=== PATIENT | female | born 1970 | race Caucasian/White ===

== ENCOUNTER 2018-04-19 20:23 | Emergency (ER) | payer MEDICAID ==
[2018-04-19] MEDS ORDERED: LIDOCAINE 1% MPF 30 ML VIAL ONE (21:47)
--- NOTE | 2018-04-19 22:05 | EDPHYS ---
Physician Documentation [facility] Name: Dorene Esquivel Age: 47 yrs Sex: Female : 1970 Arrival Date: 04/19/2018 Time: 20:30 Bed 12 Private MD: ED Physician Ira Marx HPI: 04/19 21:22 This 47 yrs old Female presents to ER via Ambulatory with complaints of ma2 Finger Injury. 21:22 Mechanism of injury:. Onset: The symptoms/episode began/occurred suddenly, 12 hour(s) ma2 ago. The patient has not experienced similar symptoms in the past. tripped and fell on right hand had laceration from a nail on the ground . 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 - Social history:: Smoking status: Patient uses tobacco products, smokes one pack cigarettes per day. Patient/guardian denies using alcohol, street drugs, The patient lives with family. - Ebola Screening: : Patient denies travel to an Ebola-affected area in the 21 days before illness onset. - Family history:: not pertinent. - Hospitalizations: : No recent hospitalization is reported. ROS: 21:22 Constitutional: Negative for fever, chills, and weight loss, Cardiovascular: Negative ma2 for chest pain, palpitations, and edema, Respiratory: Negative for shortness of breath, cough, wheezing, and pleuritic chest pain. 21:22 Skin: Positive for laceration(s), Negative for abrasions, burn, diaphoresis, erythema. 21:22 All other systems are negative. Exam: 21:22 Constitutional: This is a well developed, well nourished patient who is awake, alert, ma2 and in no acute distress. Head/Face: Normocephalic, atraumatic. Neck: Trachea midline, no thyromegaly or masses palpated, and no cervical lymphadenopathy. Supple, full range of motion without nuchal rigidity, or vertebral point tenderness. No Meningismus. MS/ Extremity: Pulses equal, no cyanosis. Neurovascular intact. Full, normal range of motion. Neuro: Awake and alert, GCS 15, oriented to person, place, time, and situation. Cranial nerves II-XII grossly intact. Motor strength 5/5 in all extremities. Sensory grossly intact. Cerebellar exam normal. Normal gait. 21:22 Skin: laceration 1 cm over right palmar aspect of 5th finger . Vital Signs: 20:47 BP 128 / 89; Pulse 65; Resp 18; Temp 97.2; Pulse Ox 99% on R/A; Weight 97.52 kg (R); aj1 Height 5 ft. 6 in. (167.64 cm) (R); Pain 9/10; 22:41 BP 130 / 92; Pulse 68; Resp 20; Pulse Ox 100% ; Pain 0/10; jl3 20:47 Body Mass Index 34.70 (97.52 kg, 167.64 cm) aj1 Laceration: 21:22 Wound Repair of 1cm ( 0.4in ) subcutaneous laceration to right hand. Distal ma2 neuro/vascular/tendon intact. Anesthesia: Local anesthetic administered with 4 mls of 1% lidocaine. Wound prep: Simple cleansing, Extensive cleansing. Skin closed with 3 3-0 Prolene using simple sutures and sterile technique. Dressed with 4x4's. Patient tolerated well. MDM: 21:09 Patient medically screened. ma2 21:22 Differential diagnosis: laceration of right hand, with mild induration no tendon or ma2 nerve injury. Data reviewed: vital signs, nurses notes. Counseling: I had a detailed discussion with the patient and/or guardian regarding: the historical points, exam findings, and any diagnostic results supporting the discharge/admit diagnosis, the presence of at least one elevated blood pressure reading (>120/80) during this emergency department visit, the need for outpatient follow up, pcp in 1 day . Response to treatment: the patient's symptoms have markedly improved after treatment. 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 Lot #: [id number]. } Route: IM; Site: right deltoid; 22:37 Follow up: Response: No adverse reaction [facility] 22:23 Drug: Latimer (7.5 mg-325 mg) 1 tabs Route: PO; 3 22:37 Follow up: Response: No adverse reaction 3 Disposition: 04/19/18 22:04 Discharged to Home. Impression: Laceration with foreign body of finger without damage to nail. - Condition is Stable. - Discharge Instructions: Laceration Care, Adult. - Prescriptions for Clindamycin HCl 300 mg Oral Capsule - take 1 capsule by ORAL route every 6 hours for 10 days; 40 capsule. Tylenol- Codeine #3 300-30 mg Oral Tablet - take 2 tablet by ORAL route every 6 hours As needed; 30 tablet. - Work release form, Medication Reconciliation Form, Thank You Letter, Antibiotic Education, Prescription Opioid Use form. - Follow up: Private Physician; When: Tomorrow; Reason: Continuance of care. - Notes: remove sutures in 10 days Signatures: Kassie Odell RN RN aj1 Garcia Bashir RN RN jl3 Ira Marx MD MD ma2 Corrections: (The following items were deleted from the chart) 22:41 22:04 04/19/2018 22:04 Discharged to Home. Impression: Laceration with foreign body of jl3 finger without damage to nail. Condition is Stable. Discharge Instructions: Laceration Care, Adult. Prescriptions for Clindamycin HCl 300 mg Oral Capsule - take 1 capsule by ORAL route every 6 hours for 10 days; 40 capsule, Tylenol-Codeine #3 300-30 mg Oral Tablet - take 2 tablet by ORAL route every 6 hours As needed; 30 tablet. and Forms are Medication Reconciliation Form, Thank You Letter, Antibiotic Education, Prescription Opioid Use. Follow up: Private Physician; When: Tomorrow; Reason: Continuance of care. ma2
--- NOTE | 2018-04-19 22:05 | ER ---
Nurse's Notes [facility] Name: Dorene Esquivel Age: 47 yrs Sex: Female : 1970 Arrival Date: 04/19/2018 Time: 20:30 Bed 12 Private MD: Diagnosis: Laceration with foreign body of finger without damage to nail Presentation: 04/19 20:43 Presenting complaint: Patient states: "This morning I was walking down the back steps aj1 and slipped and fell because of the rain and I landed on my hand. My hand landed on a nail and it sliced it up" Laceration noted to right pinky finger, no bleeding noted. Patient reports that the laceration occurred at 0700 this morning. Transition of care: patient was not received from another setting of care. Onset of symptoms was April 19, 2018 at 07:00. Risk Assessment: Do you want to hurt yourself or someone else? Patient reports no desire to harm self or others. Initial Sepsis Screen: Does the patient meet any 2 criteria? No. Patient's initial sepsis screen is negative. Does the patient have a suspected source of infection? Yes: Skin breakdown/wound. Care prior to arrival: None. 20:43 Method Of Arrival: Ambulatory aj1 20:43 Acuity: MARY 4 aj1 Triage Assessment: 20:47 General: Appears in no apparent distress. comfortable, Behavior is calm, cooperative, aj1 appropriate for age. Pain: Complains of pain in Palmar aspect of proximal phalanx of right little finger Pain currently is 9 out of 10 on a pain scale. Quality of pain is described as throbbing. Neuro: Level of Consciousness is awake, alert, obeys commands. Cardiovascular: Patient's skin is warm and dry. Respiratory: Airway is patent Respiratory effort is even, unlabored, Respiratory pattern is regular, symmetrical. Derm: Skin is pink, warm \\T\\ dry. normal. Musculoskeletal: Range of motion: limited in MCP of right little finger. Injury Description: Laceration sustained to Palmar aspect of proximal phalanx of right little finger no active bleeding noted at this time. 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 - Social history:: Smoking status: Patient uses tobacco products, smokes one pack cigarettes per day. Patient/guardian denies using alcohol, street drugs, The patient lives with family. - Ebola Screening: : Patient denies travel to an Ebola-affected area in the 21 days before illness onset. - Family history:: not pertinent. - Hospitalizations: : No recent hospitalization is reported. Screenin:39 Abuse screen: none. Nutritional screening: No deficits noted. Tuberculosis screening: jl3 No symptoms or risk factors identified. Fall Risk None identified. Assessment: 22:38 General: Pt states cut medial aspect of R. small finger on a nail on her porch deck.. jl3 Pain: Complains of pain in palmar aspect of middle phalanx of right little finger and Palmar aspect of proximal phalanx of right little finger. Vital Signs: 20:47 BP 128 / 89; Pulse 65; Resp 18; Temp 97.2; Pulse Ox 99% on R/A; Weight 97.52 kg (R); aj1 Height 5 ft. 6 in. (167.64 cm) (R); Pain 9/10; 22:41 BP 130 / 92; Pulse 68; Resp 20; Pulse Ox 100% ; Pain 0/10; jl3 20:47 Body Mass Index 34.70 (97.52 kg, 167.64 cm) aj1 ED Course: 20:30 Patient arrived in ED. ag3 20:46 Triage completed. aj1 20:47 Arm band placed on Patient placed in waiting room, Patient notified of wait time. aj1 21:09 Ira Marx MD is Attending Physician. ma2 22:08 Garcia Bashir, JULIAN is Primary Nurse. jl3 22:39 Assist provider with laceration repair on Palmar aspect of proximal phalanx of right jl3 little finger that was 2.5 cm. or less Set up tray. Performed by Ira Marx MD Dressed with 4X4s, Patient tolerated well. Patient did not have IV access during this emergency room visit. 22:40 Patient has correct armband on for positive identification. 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 Lot #: [id number]. } Route: IM; Site: right deltoid; 22:37 Follow up: Response: No adverse reaction jl3 22:23 Drug: [place] (7.5 mg-325 mg) 1 tabs Route: PO; 3 22:37 Follow up: Response: No adverse reaction jl3 Outcome: 22:04 Discharge ordered by . ma2 22:40 Discharged to home ambulatory, with family. jl3 22:40 Condition: stable 22:40 Discharge instructions given to patient, Prescriptions given X 2. 22:41 Patient left the ED. jl3 Signatures: Kassie Odell RN RN aj1 Garcia Bashir RN RN jl3 Ira Marx MD MD ma2 Karlee Kendrick 3
[2018-04-19] MEDS ORDERED: TETANUS & DIPHTHERIA TOX,ADULT 0.5 ML VIAL ONE (22:20)
[2018-04-19] MEDS ORDERED: HYDROCODONE/APAP 7.5/325 MG TAB ONE (22:20)
[2018-04-20 01:09] VITALS: TEMP 97.2
[2018-04-20 01:11] VITALS: BP 130/92; O2SAT 100
== END 2018-04-19 22:41 | disposition home or self-care (01) ==
LOC: ER 20:23
PROC: 0JQJ0ZZ Repair Right Hand Subcutaneous Tissue and Fascia, Open Approach (ICD-10-PCS; principal; 2018-04-19)
DX: S61.411A Laceration without foreign body of right hand, initial encounter (principal); W01.0XXA Fall on same level from slipping, tripping and stumbling without subsequent striking against object, initial encounter; Y93.9 Activity, unspecified; Y92.9 Unspecified place or not applicable; F17.210 Nicotine dependence, cigarettes, uncomplicated; Z23 Encounter for immunization
CPT/HCPCS: 90714; 99283

== ENCOUNTER 2018-06-19 23:07 | Emergency (ER) | payer MEDICAID ==
[2018-06-19] MEDS ORDERED: METHYLPREDNISOLONE 125 MG INJ ONE (23:56)
--- NOTE | 2018-06-20 00:14 | EDPHYS ---
Physician Documentation [facility] Name: Dorene Esquivel Age: 47 yrs Sex: Female : 1970 Arrival Date: 06/19/2018 Time: 23:16 Bed 14 Private MD: Zelda Nina K ED Physician Del Yousif HPI: 06/20 00:04 This 47 yrs old Female presents to ER via Ambulatory with complaints of rash. rn 00:05 The patient's rash thought to be caused by an unknown cause. The rash is located on the rn right arm, left arm, right leg and left leg. The rash can be described as erythematous. 00:05 Onset: The symptoms/episode began/occurred 1 week(s) ago. Severity of symptoms: At rn their worst the symptoms were moderate in the emergency department the symptoms are unchanged. The patient has not experienced similar symptoms in the past. The patient has not recently seen a physician. Reports working in yard last week, began itching and rash to arms and legs, no trouble breathing, no tongue swelling, no fever, trying benadryl and topical cream without control of symptoms. without rash.. Historical: - Allergies: 06/19 23:46 No Known Allergies; aa1 - Home Meds: 23:46 None [Active]; aa1 - PMHx: 23:46 TBI; aa1 - PSHx: 23:46 5 titanium plates in face; titanium david in right thigh; aa1 - Immunization history:: Adult Immunizations up to date. - Social history:: Smoking status: Patient uses tobacco products, smokes one pack cigarettes per day. - Ebola Screening: : No symptoms or risks identified at this time. - Family history:: not pertinent. - Hospitalizations: : No recent hospitalization is reported. ROS: 06/20 00:05 Constitutional: Negative for fever, chills, and weight loss, Eyes: Negative for injury, rn pain, redness, and discharge, Neck: Negative for injury, pain, and swelling, Cardiovascular: Negative for chest pain, palpitations, and edema, Respiratory: Negative for shortness of breath, cough, wheezing, and pleuritic chest pain, Abdomen/GI: Negative for abdominal pain, nausea, vomiting, diarrhea, and constipation, MS/Extremity: Negative for injury and deformity, Skin: + rash and itching to arms/legs Neuro: Negative for headache, weakness, numbness, tingling, and seizure. Exam: 00:05 Constitutional: This is a well developed, well nourished patient who is awake, alert, rn and in no acute distress. Head/Face: Normocephalic, atraumatic. Eyes: Pupils equal round and reactive to light, extra-ocular motions intact. Lids and lashes normal. Conjunctiva and sclera are non-icteric and not injected. Cornea within normal limits. Periorbital areas with no swelling, redness, or edema. ENT: Nares patent. No nasal discharge, no septal abnormalities noted. Tympanic membranes are normal and external auditory canals are clear. Oropharynx with no redness, swelling, or masses, exudates, or evidence of obstruction, uvula midline. Mucous membranes moist. Skin: Warm, dry, + scattered erythematous rash with excoriations on both arms and legs, no bullae, no desquamation MS/ Extremity: Pulses equal, no cyanosis. Neurovascular intact. Full, normal range of motion. Equal circumference. Neuro: Awake and alert, GCS 15, oriented to person, place, time, and situation. Cranial nerves II-XII grossly intact. Motor strength 5/5 in all extremities. Sensory grossly intact. Cerebellar exam normal. Normal gait. Vital Signs: 06/19 23:46 BP 158 / 74; Pulse 70; Resp 18; Temp 98.0; Pulse Ox 99% on R/A; Weight 90.72 kg; Height aa1 5 ft. 7 in. (170.18 cm); Pain 0/10; 23:46 Body Mass Index 31.32 (90.72 kg, 170.18 cm) aa1 MDM: 23:37 Patient medically screened. rn 06/20 00:05 Differential diagnosis: allergic reaction, dermatitis. Data reviewed: vital signs, rn nurses notes, and as a result, I will discharge patient. Counseling: I had a detailed discussion with the patient and/or guardian regarding: the historical points, exam findings, and any diagnostic results supporting the discharge/admit diagnosis, the need for outpatient follow up, to return to the emergency department if symptoms worsen or persist or if there are any questions or concerns that arise at home. Special discussion: I discussed with the patient/guardian in detail that at this point there is no indication for admission to the hospital. It is understood, however, that if the symptoms persist or worsen the patient needs to return immediately for re-evaluation. Administered Medications: 06/19 23:52 CANCELLED (Other Intervention Used): SOLU-Medrol 125 mg IVP once jb4 23:53 Drug: SOLU-Medrol 125 mg Route: IM; Site: right gluteus; jb4 06/20 00:28 Follow up: Response: No adverse reaction jb4 Disposition: 06/20/18 00:14 Discharged to Home. Impression: Rash and other nonspecific skin eruption. - Condition is Stable. - Discharge Instructions: Rash. - Prescriptions for Prednisone 20 mg Oral Tablet - take 3 tablet by ORAL route once daily for 5 days; 15 tablet. - Medication Reconciliation Form, Thank You Letter, Antibiotic Education, Prescription Opioid Use form. - Follow up: Private Physician; When: As needed; Reason: Recheck today's complaints, Re-evaluation by your physician. - Problem is an ongoing problem. - Symptoms have improved. Signatures: Dina Ojeda RN RN aa1 Del Yousif MD MD rn Bryson, James, RN RN jb4 Corrections: (The following items were deleted from the chart) 06/19 23:52 23:43 SOLU-Medrol 125 mg IVP once ordered. rn jb4 06/20 00:28 00:14 06/20/2018 00:14 Discharged to Home. Impression: Rash and other nonspecific skin jb4 eruption. Condition is Stable. Forms are Medication Reconciliation Form, Thank You Letter, Antibiotic Education, Prescription Opioid Use. Follow up: Private Physician; When: As needed; Reason: Recheck today's complaints, Re-evaluation by your physician. Problem is an ongoing problem. Symptoms have improved. rn
--- NOTE | 2018-06-20 00:14 | ER ---
Nurse's Notes [facility] Name: Dorene Esquivel Age: 47 yrs Sex: Female : 1970 Arrival Date: 06/19/2018 Time: 23:16 Bed 14 Private MD: Zelda Nina K Diagnosis: Rash and other nonspecific skin eruption Presentation: 06/19 23:43 Presenting complaint: Patient states: she was working in her yard last week and has aa1 been itching ever since. States, "It's driving me crazy and I can't stop scratching and my eyes are burning." Excoriation noted BUE. Transition of care: patient was not received from another setting of care. Onset of symptoms was June 12, 2018. Risk Assessment: Do you want to hurt yourself or someone else? Patient reports no desire to harm self or others. Initial Sepsis Screen: Does the patient meet any 2 criteria? No. Patient's initial sepsis screen is negative. Does the patient have a suspected source of infection? No. Patient's initial sepsis screen is negative. Care prior to arrival: None. 23:43 Method Of Arrival: Ambulatory aa1 23:43 Acuity: MARY 4 aa1 Historical: - Allergies: 23:46 No Known Allergies; aa1 - Home Meds: 23:46 None [Active]; aa1 - PMHx: 23:46 TBI; aa1 - PSHx: 23:46 5 titanium plates in face; titanium david in right thigh; aa1 - Immunization history:: Adult Immunizations up to date. - Social history:: Smoking status: Patient uses tobacco products, smokes one pack cigarettes per day. - Ebola Screening: : No symptoms or risks identified at this time. - Family history:: not pertinent. - Hospitalizations: : No recent hospitalization is reported. Screenin:43 Abuse screen: Denies threats or abuse. Nutritional screening: No deficits noted. jb4 Tuberculosis screening: No symptoms or risk factors identified. Fall Risk None identified. Assessment: 23:43 General: Appears in no apparent distress. uncomfortable, Behavior is calm, cooperative, jb4 appropriate for age. Pain: Denies pain. Neuro: Level of Consciousness is awake, alert, obeys commands, Oriented to person, place, time, situation. Cardiovascular: Heart tones S1 S2 present Patient's skin is warm and dry. Respiratory: Airway is patent Respiratory effort is even, unlabored, Respiratory pattern is regular, symmetrical, Breath sounds are clear bilaterally. GI: No signs and/or symptoms were reported involving the gastrointestinal system. : No signs and/or symptoms were reported regarding the genitourinary system. EENT: Throat is clear. Derm: Skin has skin tears on right elbow. Musculoskeletal: Circulation, motion, and sensation intact. Vital Signs: 23:46 BP 158 / 74; Pulse 70; Resp 18; Temp 98.0; Pulse Ox 99% on R/A; Weight 90.72 kg; Height aa1 5 ft. 7 in. (170.18 cm); Pain 0/10; 23:46 Body Mass Index 31.32 (90.72 kg, 170.18 cm) aa1 ED Course: 23:16 Patient arrived in ED. es 23:16 Zelda Nina MD is Private Physician. es 23:25 [facility] 23:25 Del Yousif MD is Attending Physician. [facility] 23:36 Michael Rodriges RN is Primary Nurse. jb4 23:37 Del Yousif MD is Attending Physician. rn 23:43 Patient has correct armband on for positive identification. Bed in low position. Call jb4 light in reach. Side rails up X 1. Pulse ox on. NIBP on. 23:46 Triage completed. aa1 23:46 Arm band placed on right wrist. aa1 12 00:27 No provider procedures requiring assistance completed. Patient did not have IV access jb4 during this emergency room visit. Administered Medications: 12 23:52 CANCELLED (Other Intervention Used): SOLU-Medrol 125 mg IVP once jb4 23:53 Drug: SOLU-Medrol 125 mg Route: IM; Site: right gluteus; jb4 12 00:28 Follow up: Response: No adverse reaction jb4 Outcome: 00:14 Discharge ordered by . rn 00:27 Discharged to home ambulatory. jb4 00:27 Condition: stable 00:27 Discharge instructions given to patient, significant other, Instructed on discharge instructions, follow up and referral plans. medication usage, Demonstrated understanding of instructions, follow-up care, medications, Prescriptions given X 1. 00:28 Patient left the ED. jb4 Signatures: Dina Ojeda RN RN aa1 Reji Bravo PA PA jmm Salyer, Edna es Nieto, Roman, MD MD rn Michael Rodriges RN RN jb4
[2018-06-20 01:42] VITALS: BP 158/74; TEMP 98; O2SAT 99
== END 2018-06-20 00:28 | disposition home or self-care (01) ==
LOC: ER 23:07
DX: R21 Rash and other nonspecific skin eruption (principal); F17.210 Nicotine dependence, cigarettes, uncomplicated
CPT/HCPCS: 96372; 99283; J2930

== ENCOUNTER 2025-03-11 05:21 | Emergency (ER) | payer OTHER ==
--- OUTSIDE RECORDS SUMMARY | 2025-03-11 05:26 | XMS REPORT | Continuity of Care Document ---
Author Name Unknown Address [address] [facility] [address] [place] [address] [facility] [place] Address [address] [facility] [place] [address] Care Team Providers Care Script Artist Name Role Phone WANG SIMS Primary Care Physician Unavailab WANG Trimble Attending Clinician Unavailable Jacob AMAYA, Kristofer K.HMy Attending Clinician + [phone] KRISTOFER VALDES KMyHMy Attending Clinician UnavailWang Simons Attending Clinician [phone] Sandra JAIN Attending Clinician Unavailable Sandra JAIN Attending Clinician Unavailable Sandra Lord Attending Clinician [phone] Zacarias Murillo Attending Clinician [phone] Unknown, Attending Attending Clinician UnavailZACARIAS Lopez Attending Clinician Unavailable Wang Cardona Attending Clinician [phone] Doctor Unassigned, [place] Attending Clinician U navailable JOEL SMITH Attending Clinician Unavaila JOEL Lewis Attending Clinician Unavaila carlos Lab, Ang - Db Attending Clinician Unavailable Neyda Sands MA Attending Clinician UnavailUlises Interiano MD Attending Clinician [phone] ULISES WALTERS Attending Clinician Unavail able ULISES WALTERS Attending Clinician Unavail able Kristofer Valdes MD K.HMy Attending Clinician + [phone] Michael Javier MD Attending Clinician [phone] UNKNOWN, ATTENDING Attending Clinician Ingrid Coles Attending Clinician [phone] Unknown, Attending Attending Clinician INGRID Tran Attending Clinician WANG Louise Admitting Clinician Unavailable Payers Payer Name Policy Type Policy Number Effective Date Expirati on Date Source MICHELLE DENT [id number] 2023 00:00:00 [facility] [id number] 2022 00:00:00 Problems Condition Name Condition Details Condition Category Status Onset Date Resolution Date Last Treatment Date Treating Clinician Comments Source Mixed hyperlipid emia Mixed hyperlipid emia Disease Active 4- 00:00: 00 [facility] Diarrhea, unspecifie d type Diarrhea, unspecifie d type Disease Active 10-25 00:00: 00 [facility] Smoker Smoker Disease Active 10-25 00:00: 00 [facility] Snoring Snoring Disease Active 10-25 00:00: 00 [facility] Wheezing Wheezing Disease Active 10-25 00:00: 00 [facility] Need for vaccinatio n Need for vaccinatio n Disease Active 9- 00:00: 00 [facility] Syncope, unspecifie d syncope type Syncope, unspecifie d syncope type Disease Active 8-23 00:00: 00 [facility] Essential hypertensi on Essential hypertensi on Disease Active 02-10 00:00: 00 [facility] Abnormal EKG Abnormal EKG Disease Active 02-10 00:00: 00 [facility] Right thigh pain Right thigh pain Disease Active 02-10 00:00: 00 [facility] Stress incontinen ce Stress incontinen ce Disease Active 02-10 00:00: 00 [facility] Encounter to establish care Encounter to establish care Disease Active 01-28 00:00: 00 [facility] Hot flashes Hot flashes Disease Active 01-28 00:00: 00 [facility] Anxiety and depression Anxiety and depression Disease Active 01-28 00:00: 00 [facility] Elevated blood pressure reading in office without diagnosis of hypertensi on Elevated blood pressure reading in office without diagnosis of hypertensi on Disease Active 01-28 00:00: 00 [facility] Encounter to establish care Encounter to establish care Disease Active 01-28 00:00: 00 [facility] No known active problems No known active problems Disease [facility] Allergies, Adverse Reactions, Alerts Allergy Name Allergy Type Status Severity Reaction(s) Onset Date Inactive Date Treating Clinician Comments Source NO KNOWN ALLERGIE S Drug Class Active [facility] Social History Social Habit Start Date Stop Date Quantity Comments Source History of tobacco use Cigarette Smoker [facility] Gender identity [facility] ASSERTION Not [facility] History of Social function 2024-03-08 00:00:00 2024-03-08 00:00:00 [facility] Tobacco use and exposure 2024-02-24 00:00:00 2024-02-24 00:00:00 Smokeless tobacco non-user [facility] Cigarettes smoked current (pack per day) - Reported 2023-01-28 00:00:00 2023-01-28 00:00:00 [facility] Exposure to SARS-CoV-2 (event) 2022-05-22 00:00:00 2022-06-01 09:05:00 Not sure [facility] Sex assigned at 1970 00:00:00 1970 00:00:00 [facility] Smoking Status Start Date Stop Date Source Tobacco smoking consumption unknown [facility] Smokes tobacco daily 2024-02-24 00:00:00 [facility] Medications Ordered Medication Name Filled Medication Name Start Date Stop Date Current Medication? Ordering Clinician Indication Dosage Frequency Signature (SIG) Comments Components Source LOSARTAN 100 mg tablet 12-26 00:00: 00 Yes [id number] 100mg TAKE 1 TABLET BY MOUTH EVERY DAY IN THE MORNING [facility] amLODIPine 10 mg tablet 2023-07 00:00: 00 08-16 05:59 :00 No [id number] 10mg TAKE 1 TABLET BY MOUTH EVERY MORNING FOR 90 DAYS. MUST BE SEEN FOR FURTHER REFILLS [facility] busPIRone 10 mg tablet 2023-07 00:00: 00 Yes [id number] 10mg Take 1 tablet by mouth 2 (two) times daily as needed (anxiety). [facility] PARoxetine (PAXIL) 20 mg tablet 2023-07 00:00: 00 Yes [id number] 20mg Take 1 tablet by mouth in the morning. [facility] rosuvastati n (CRESTOR) 20 mg tablet 2023-07 00:00: 00 Yes [id number] 20mg Take 1 tablet by mouth at bedtime. [facility] perflutren protein-A microsphr (OPTISON) injection 3 mL 04-11 18:30: 00 04-11 18:25 :00 No [id number] 3mL 3 mL, IV Push, ONCE, 1 dose, On Thu04/11/24 at 1330, Routine [facility] losartan 100 mg tablet 04-11 00:00: 00 12-26 00:00 :00 No [id number] 100mg Take 1 tablet by mouth every morning. [facility] BUSPIRONE 10 mg tablet 03-14 00:00: 00 05-15 00:00 :00 No [id number] TAKE 1 TABLET BY MOUTH 2 TIMES DAILY NEEDED (ANXIETY). [facility] amLODIPine 10 mg tablet 03-08 00:00: 00 05-17 00:00 :00 No [id number] 10mg Take 1 tablet by mouth every morning for 90 days. MUST BE SEEN FOR FURTHER REFILLS [facility] NaCl 0.9% (NS) bolus infusion 1,000 mL 02-23 16:45: 00 02-23 17:31 :00 No 1000mL at 999 mL/hr, 1,000 mL, IV Infusion, ONCE, 1 dose, On Thu02/24/24 at 1145, STAT [facility] magnesium sulfate in water 2 gram/50 mL (4 %) infusion 2 g 02-23 16:30: 00 02-23 17:31 :00 No 2g 2 g, IV Piggyback, Administer over 60 Minutes, ONCE, 1 dose, On Thu02/24/24 at 1130, Routine [facility] albuterol 90 mcg/actuati on inhaler 02-18 00:00: 00 Yes [id number] 2{puff} TAKE 2 PUFFS BY MOUTH EVERY 6 HOURS NEEDED FOR WHEEZE OR FOR SHORTNESS OF BREATH [facility] amLODIPine 5 mg tablet 02-18 00:00: 00 03-08 00:00 :00 No [id number] 5mg Take 1 tablet by mouth every morning. MUST BE SEEN FOR FURTHER REFILLS [facility] losartan 100 mg tablet 12-01 00:00: 00 04-11 00:00 :00 No [id number] 100mg Take 1 tablet by mouth every morning. [facility] losartan 100 mg tablet 10-25 00:00: 00 Yes [id number] 100mg Take 1 tablet by mouth every morning. [facility] PARoxetine (PAXIL) 20 mg tablet 10-25 00:00: 00 04-29 00:00 :00 No [id number] 20mg Take 1 tablet by mouth in the morning. [facility] rosuvastati n (CRESTOR) 20 mg tablet 10-25 00:00: 00 04-29 00:00 :00 No [id number] 20mg Take 1 tablet by mouth at bedtime. [facility] amLODIPine 5 mg tablet 10-25 00:00: 00 02-18 00:00 :00 No [id number] 5mg Take 1 tablet by mouth in the morning. [facility] albuterol 90 mcg/actuati on inhaler 08 00:00: 00 02-18 00:00 :00 No [id number] 2{puff} Inhale 2 Puffs every 6 (six) hours as needed for Wheezing or Shortness of Breath. [facility] losartan 100 mg tablet 3-19 00:00: 00 10-25 00:00 :00 No [id number] 100mg Take 1 tablet by mouth every morning. [facility] losartan 100 mg tablet 2022-07 2- 00:00: 00 Yes [id number] 100mg TAKE 1 TABLET BY MOUTH EVERY DAY IN THE MORNING [facility] busPIRone 10 mg tablet 04-14 00:00: 00 03-14 00:00 :00 No [id number] 10mg Take 1 tablet by mouth 2 (two) times daily as needed (anxiety). [facility] PARoxetine (PAXIL) 20 mg tablet 04-14 00:00: 00 10-25 00:00 :00 No [id number] 20mg Take 1 tablet by mouth in the morning. [facility] losartan 100 mg tablet 04-14 00:00: 00 07-16 00:00 :00 No [id number] 100mg Take 1 tablet by mouth in the morning. [facility] losartan 50 mg tablet 03-11 00:00: 00 04-14 00:00 :00 No [id number] Take 75mg daily [facility] losartan 25 mg tablet 03-11 00:00: 00 04-14 00:00 :00 No [id number] 75mg daily [facility] PARoxetine (PAXIL) 20 mg tablet 03-11 00:00: 00 04-14 00:00 :00 No [id number] 20mg Take 1 tablet by mouth in the morning. [facility] busPIRone 10 mg tablet 03-11 00:00: 00 04-14 00:00 :00 No [id number] 10mg Take 1 tablet by mouth 2 (two) times daily as needed (anxiety). [facility] BUSPIRONE 10 mg tablet 8-22 00:00: 00 03-11 00:00 :00 No [id number] 10mg TAKE 1 TABLET BY MOUTH 2 (TWO) TIMES DAILY NEEDED (ANXIETY) FOR UP TO 30 DAYS. [facility] rosuvastati n (CRESTOR) 20 mg tablet 7- 00:00: 00 10-25 00:00 :00 No [id number] 20mg Take 1 tablet by mouth at bedtime. [facility] losartan 25 mg tablet 02-10 00:00: 00 03-11 00:00 :00 No [id number] 25mg Take 1 tablet by mouth in the morning. [facility] busPIRone 10 mg tablet 02-10 00:00: 00 03-10 00:00 :00 No [id number] 10mg Take 1 tablet by mouth 2 (two) times daily as needed (anxiety) for up to 30 days. [facility] PARoxetine (PAXIL) 10 mg tablet 01-28 00:00: 00 03-11 00:00 :00 No [id number] 10mg Take 1 tablet by mouth in the morning. [facility] ketorolac (TORADOL) injection 30 mg 2021-07 15:44: 00 06-01 15:50 :00 No [id number] 30mg [facility] cyclobenzap rine 10 mg tablet 2021-07 00:00: 00 04-02 00:00 :00 No [id number] 10mg Take 1 tablet by mouth 3 (three) times daily as needed for Muscle Spasms. [facility] methylPREDN ISolone 4 mg tablets 2021-07 00:00: 00 04-02 00:00 :00 No [id number] Take by mouth SEE-INSTRU CTIONS. follow package directions [facility] Immunizations Ordered Immunization Name Filled Immunization Name Date Status Comments Source Influenza Virus Vaccine Quad IM, Preserv and ABX Free 6 MO-64 YRS (FLUCELVAX) 2023-04-14 00:00:00 Completed [facility] Influenza Virus Vaccine Quad IM, Preserv and ABX Free 6 MO-64 YRS (FLUCELVAX) 2023-04-14 00:00:00 Completed [facility] Influenza Virus Vaccine Quad IM, Preserv and ABX Free 6 MO-64 YRS (FLUCELVAX) 2023-04-14 00:00:00 Completed [facility] Influenza Virus Vaccine Quad IM, Preserv and ABX Free 6 MO-64 YRS (FLUCELVAX) 2023-04-14 00:00:00 Completed [facility] Influenza Virus Vaccine Quad IM, Preserv and ABX Free 6 MO-64 YRS (FLUCELVAX) Unknown Completed [facility] Influenza Virus Vaccine Quad IM, Preserv and ABX Free 6 MO-64 YRS (FLUCELVAX) Unknown Completed [facility] Influenza Virus Vaccine Quad IM, Preserv and ABX Free 6 MO-64 YRS (FLUCELVAX) Unknown Completed [facility] Influenza Virus Vaccine Quad IM, Preserv and ABX Free 6 MO-64 YRS (FLUCELVAX) Unknown Completed [facility] Influenza Virus Vaccine Quad IM, Preserv and ABX Free 6 MO-64 YRS (FLUCELVAX) Unknown Completed [facility] Influenza Virus Vaccine Quad IM, Preserv and ABX Free 6 MO-64 YRS (FLUCELVAX) Unknown Completed [facility] Influenza Virus Vaccine Quad IM, Preserv and ABX Free 6 MO-64 YRS (FLUCELVAX) Unknown Completed [facility] Influenza Virus Vaccine Quad IM, Preserv and ABX Free 6 MO-64 YRS (FLUCELVAX) Unknown Completed [facility] Influenza Virus Vaccine Quad IM, Preserv and ABX Free 6 MO-64 YRS (FLUCELVAX) Unknown Completed [facility] Influenza Virus Vaccine Quad IM, Preserv and ABX Free 6 MO-64 YRS (FLUCELVAX) Unknown Completed [facility] Influenza Virus Vaccine Quad IM, Preserv and ABX Free 6 MO-64 YRS (FLUCELVAX) Unknown Completed [facility] Influenza Virus Vaccine Quad IM, Preserv and ABX Free 6 MO-64 YRS (FLUCELVAX) Unknown Completed [facility] Influenza Virus Vaccine Quad IM, Preserv and ABX Free 6 MO-64 YRS (FLUCELVAX) Unknown Completed [facility] Influenza Virus Vaccine Quad IM, Preserv and ABX Free 6 MO-64 YRS (FLUCELVAX) Unknown Completed [facility] Influenza Virus Vaccine Quad IM, Preserv and ABX Free 6 MO-64 YRS (FLUCELVAX) Unknown Completed [facility] Influenza Virus Vaccine Quad IM, Preserv and ABX Free 6 MO-64 YRS (FLUCELVAX) Unknown Completed [facility] Influenza Virus Vaccine Quad IM, Preserv and ABX Free 6 MO-64 YRS (FLUCELVAX) Unknown Completed [facility] Influenza Virus Vaccine Quad IM, Preserv and ABX Free 6 MO-64 YRS (FLUCELVAX) Unknown Completed [facility] Influenza Virus Vaccine Quad IM, Preserv and ABX Free 6 MO-64 YRS (FLUCELVAX) Unknown Completed [facility] Influenza Virus Vaccine Quad IM, Preserv and ABX Free 6 MO-64 YRS (FLUCELVAX) Unknown Completed [facility] Influenza Virus Vaccine Quad IM, Preserv and ABX Free 6 MO-64 YRS (FLUCELVAX) Unknown Completed [facility] Influenza Virus Vaccine Quad IM, Preserv and ABX Free 6 MO-64 YRS (FLUCELVAX) Unknown Completed [facility] Influenza Virus Vaccine Quad IM, Preserv and ABX Free 6 MO-64 YRS (FLUCELVAX) Unknown Completed [facility] Vital Signs Vital Name Observation Time Observation Value Comments S ource Systolic blood pressure 2024-04-20 14:15:00 146 mm[Hg] [facility] Diastolic blood pressure 2024-04-20 14:15:00 77 mm[Hg] [facility] Heart rate 2024-04-20 14:15:00 72 /min [facility] Body temperature 2024-04-20 14:15:00 35.89 Dayana [facility] Respiratory rate 2024-04-20 14:15:00 17 /min [facility] Body height 2024-04-20 14:15:00 170.2 cm [facility] Body weight 2024-04-20 14:15:00 92.262 kg [facility] BMI 2024-04-20 14:15:00 31.86 kg/m2 [facility] Oxygen saturation in Arterial blood by Pulse oximetry 2024-04-20 14:15:00 98 /min [facility] Systolic blood pressure 2024-03-08 18:07:00 150 mm[Hg] [facility] Diastolic blood pressure 2024-03-08 18:07:00 94 mm[Hg] [facility] Heart rate 2024-03-08 18:07:00 76 /min Un[facility] Oxygen saturation in Arterial blood by Pulse oximetry 2024-03-08 18:07:00 97 /min [facility] Respiratory rate 2024-03-08 18:04:00 12 /min [facility] Body height 2024-03-08 18:04:00 167.6 cm [facility] Body weight 2024-03-08 18:04:00 92.987 kg [facility] BMI 2024-03-08 18:04:00 33.09 kg/m2 [facility] Heart rate 2024-02-24 18:40:00 70 /min [facility] Body temperature 2024-02-24 18:40:00 36.67 Dayana [facility] Oxygen saturation in Arterial blood by Pulse oximetry 2024-02-24 18:40:00 98 /min [facility] Systolic blood pressure 2024-02-24 18:00:00 152 mm[Hg] [facility] Diastolic blood pressure 2024-02-24 18:00:00 82 mm[Hg] [facility] Respiratory rate 2024-02-24 18:00:00 16 /min [facility] Body height 2024-02-24 14:59:00 170.2 cm [facility] Body weight 2024-02-24 14:59:00 91.627 kg [facility] BMI 2024-02-24 14:59:00 31.64 kg/m2 [facility] Systolic blood pressure 2024-02-24 14:19:00 140 mm[Hg] [facility] Diastolic blood pressure 2024-02-24 14:19:00 95 mm[Hg] [facility] Heart rate 2024-02-24 14:18:00 76 /min [facility] Body temperature 2024-02-24 14:18:00 36.67 Dayana [facility] Respiratory rate 2024-02-24 14:18:00 20 /min [facility] Body height 2024-02-24 14:18:00 170.2 cm [facility] Body weight 2024-02-24 14:18:00 91.853 kg [facility] BMI 2024-02-24 14:18:00 31.72 kg/m2 [facility] Oxygen saturation in Arterial blood by Pulse oximetry 2024-02-24 14:18:00 97 /min [facility] Systolic blood pressure 2023-10-26 15:17:00 137 mm[Hg] [facility] Diastolic blood pressure 2023-10-26 15:17:00 87 mm[Hg] [facility] Heart rate 2023-10-26 15:16:00 73 /min [facility] Body temperature 2023-10-26 15:16:00 36.83 Dayana [facility] Respiratory rate 2023-10-26 15:16:00 18 /min [facility] Body height 2023-10-26 15:16:00 167.6 cm [facility] Body weight 2023-10-26 15:16:00 97.478 kg [facility] BMI 2023-10-26 15:16:00 34.69 kg/m2 [facility] Oxygen saturation in Arterial blood by Pulse oximetry 2023-10-26 15:16:00 99 /min [facility] Systolic blood pressure 2023-04-17 15:23:00 130 mm[Hg] [facility] Diastolic blood pressure 2023-04-17 15:23:00 75 mm[Hg] [facility] Heart rate 2023-04-17 15:23:00 71 /min [facility] Respiratory rate 2023-04-17 15:23:00 18 /min [facility] Body height 2023-04-17 15:23:00 167.6 cm [facility] Body weight 2023-04-17 15:23:00 98.567 kg [facility] BMI 2023-04-17 15:23:00 35.07 kg/m2 [facility] Oxygen saturation in Arterial blood by Pulse oximetry 2023-04-17 15:23:00 96 /min [facility] Oxygen saturation in Arterial blood by Pulse oximetry 2023-04-14 14:13:00 97 /min [facility] Systolic blood pressure 2023-04-14 14:13:00 129 mm[Hg] [facility] Diastolic blood pressure 2023-04-14 14:13:00 65 mm[Hg] [facility] Heart rate 2023-04-14 14:13:00 72 /min [facility] Body height 2023-04-14 14:13:00 167.6 cm [facility] Body weight 2023-04-14 14:13:00 97.977 kg [facility] BMI 2023-04-14 14:13:00 34.86 kg/m2 [facility] Systolic blood pressure 2023-04-02 17:53:00 149 mm[Hg] [facility] Diastolic blood pressure 2023-04-02 17:53:00 83 mm[Hg] [facility] Heart rate 2023-04-02 17:53:00 68 /min [facility] Oxygen saturation in Arterial blood by Pulse oximetry 2023-04-02 17:53:00 97 /min [facility] Body temperature 2023-04-02 17:51:00 36.5 Dayana [facility] Respiratory rate 2023-04-02 17:51:00 18 /min [facility] Body height 2023-04-02 17:51:00 167.6 cm [facility] Body weight 2023-04-02 17:51:00 97.75 kg [facility] BMI 2023-04-02 17:51:00 34.78 kg/m2 [facility] Systolic blood pressure 2023-03-11 14:12:00 142 mm[Hg] [facility] Diastolic blood pressure 2023-03-11 14:12:00 84 mm[Hg] [facility] Heart rate 2023-03-11 14:12:00 71 /min [facility] Body height 2023-03-11 14:11:00 167.6 cm [facility] Body weight 2023-03-11 14:11:00 96.208 kg [facility] BMI 2023-03-11 14:11:00 34.23 kg/m2 [facility] Oxygen saturation in Arterial blood by Pulse oximetry 2023-03-11 14:11:00 96 /min [facility] Systolic blood pressure 2023-02-10 15:54:00 148 mm[Hg] [facility] Diastolic blood pressure 2023-02-10 15:54:00 81 mm[Hg] [facility] Heart rate 2023-02-10 15:53:00 74 /min [facility] Body height 2023-02-10 15:53:00 167.6 cm [facility] Body weight 2023-02-10 15:53:00 93.895 kg [facility] BMI 2023-02-10 15:53:00 33.41 kg/m2 [facility] Oxygen saturation in Arterial blood by Pulse oximetry 2023-02-10 15:53:00 98 /min [facility] Systolic blood pressure 2023-01-28 16:10:00 157 mm[Hg] [facility] Diastolic blood pressure 2023-01-28 16:10:00 94 mm[Hg] [facility] Heart rate 2023-01-28 15:58:00 77 /min [facility] Body temperature 2023-01-28 15:58:00 36.67 Dayana [facility] Body height 2023-01-28 15:58:00 167.6 cm [facility] 2023-01-28 15:58:00 95.119 kg [facility] BMI 2023-01-28 15:58:00 33.85 kg/m2 [facility] Oxygen saturation in Arterial blood by Pulse oximetry 2023-01-28 15:58:00 98 /min [facility] Systolic blood pressure 2022-06-01 15:22:00 172 mm[Hg] [facility] Diastolic blood pressure 2022-06-01 15:22:00 90 mm[Hg] [facility] Heart rate 2022-06-01 15:22:00 63 /min [facility] Body temperature 2022-06-01 15:22:00 36.94 Dayana [facility] Respiratory rate 2022-06-01 15:22:00 16 /min [facility] Body height 2022-06-01 15:22:00 167.6 cm [facility] Body weight 2022-06-01 15:22:00 97.523 kg [facility] BMI 2022-06-01 15:22:00 34.70 kg/m2 [facility] Oxygen saturation in Arterial blood by Pulse oximetry 2022-06-01 15:22:00 97 /min [facility] Procedures Procedure Date / Time Performed Performing Clinicia n Source LOWER EXTREMITY ARTERIAL DUPLEX BILATERAL - BY VASCULAR LAB 2024-04-11 19:54:00 Kristofer Valdes [facility] JASWANT EXTREMITY STRESS - BY VASCULAR LAB 2024-04-11 19:54:00 Kristofer Valdes [facility] HB ECG ROUTINE & RHYTHM STRIP 2024-03-08 18:06:49 Kristofer Valdes [facility] COMP. METABOLIC PANEL ([id number]) 2024-02-24 16:21:00 Sandra Jain [facility] CBC WITH DIFF 2024-02-24 16:21:00 Sandra Jain [facility] FLU VACC ([id number]), 6 MO-64 YRS, .5ML, IM, QUAD (FLUCELVAX) 2023-04-14 14:38:03 Wang Sims [facility] CT HEAD WO CONTRAST 2023-03-17 19:33:11 Wang Sims [facility] POCT URINALYSIS 2023-02-10 16:49:00 Wang Simse [facility] POCT TEST 2023-02-10 16:49:00 Wang Sims [facility] ASSIGNMENT OF BENEFITS 2022-06-01 15:07:06 Docto r Unassigned, [place] [facility] Encounters Start Date/Time End Date/Time Encounter Type Admission Type Attending [facility] Care Department Encounter ID Source 2024-12-25 00:00:00 2024-12-26 14:09:49 Kristofer Rodriguez [facility] 1..840.114 350.1.13.10 4.2.7.2.686 [id number] [id number] [facility] 2024-10-19 09:00:00 2024-10-19 09:00:00 Outpatient R KRISTOFER VALDES [facility] [id number] [facility] 2024-05-17 00:00:00 2024-05-17 09:48:03 Kristofer Rodriguez [facility] 1..840.114 350.1.13.10 4.2.7.2.686 [id number] [facility] 2024-05-15 00:00:00 2024-05-16 14:04:17 Refill Wang Sims [facility] 1..840.114 350.1.13.10 4.2.7.2.686 [id number] 044 [id number] [facility] 2024-04-29 00:00:00 2024-04-29 17:00:16 Refill Wang Sims [facility] 1.2.840.114 350.1.13.10 4.2.7.2.686 [id number] [id number] [facility] 2024-04-29 00:00:00 2024-04-29 17:00:07 Analy Levi Wang [facility] 1.2.840.114 350.1.13.10 4.2.7.2.686 [id number] 044 [id number] [facility] 2024-04-20 09:30:00 2024-04-20 09:47:47 Outpatient R KRISTOFER VALDES [facility] [id number] [facility] 2024-04-20 09:30:00 2024-04-20 09:47:47 Office Visit Kristofer Valdes [facility] 1.2.840.114 350.1.13.10 4.2.7.2.686 [id number] [facility] 2024-04-15 00:00:00 2024-04-15 10:41:45 Telephone Kristofer Valdes [facility] 1.2.840.114 350.1.13.10 4.2.7.2.686 [id number] 059 [id number] [facility] 2024-04-15 00:00:00 2024-04-15 08:57:14 Telephone Kristofer Valdes [facility] 1.2.840.114 350.1.13.10 4.2.7.2.686 [id number] 059 [id number] [facility] 2024-04-11 12:29:23 2024-04-11 23:59:00 Hospital Encounter Kristofer Valdes [facility] 1.2.840.114 350.1.13.10 4.2.7.2.686 [id number] [facility] 2024-04-11 12:29:17 2024-04-11 23:59:00 Hospital Encounter ValdesKristofer durant SandraMyHoracioMy [facility] 1.2.840.114 350.1.13.10 4.2.7.2.686 [id number] [facility] 2024-04-11 12:29:11 2024-04-11 23:59:00 Outpatient R KRISTOFER VALDES [facility] [id number] [facility] 2024-04-11 12:29:11 2024-04-11 23:59:00 Hospital Encounter Jacob Kristofer SueHoracioMy [facility] 1.2.840.114 350.1.13.10 4.2.7.2.686 [id number] [id number] [facility] 2024-04-11 00:00:00 2024-04-11 12:43:44 Refill Kristofer ValdesHoracioMy [facility] 1.2.840.114 350.1.13.10 4.2.7.2.686 [id number] 059 [id number] [facility] 2024-03-12 00:00:00 2024-03-14 11:35:25 Refill Wang Sims [facility] 1.2.840.114 350.1.13.10 4.2.7.2.686 [id number] 044 [id number] [facility] 2024-03-08 13:00:00 2024-03-08 13:46:55 Outpatient R KRISTOFER VALDES [facility] [id number] [facility] 2024-03-08 13:00:00 2024-03-08 13:46:55 Office Visit Kristofer ValdesHoracioMy [facility] 1.2.840.114 350.1.13.10 4.2.7.2.686 [id number] 059 [id number] [facility] 2024-02-24 10:00:00 2024-02-24 13:56:00 Emergency X Sandra JAIN CRISTOBALSandra [facility] [id number] [facility] 2024-02-24 10:00:00 2024-02-24 13:56:00 Emergency CristobalSandra ambriz [facility] 1.114 350.1.13.10 4.2.7.2.686 [id number] [facility] 2024-02-24 09:00:00 2024-02-24 09:20:00 Urgent Care Zacarias Greenwood Unknown, Attending [facility] 1.114 350.1.13.10 4.2.7.2.686 [id number] [facility] 2024-02-24 09:00:00 2024-02-24 09:00:00 Outpatient R ZACARIAS [facility] [id number] [facility] 2024-02-19 00:00:00 2024-02-19 07:48:29 Wang Norton [facility] 1.114 350.1.13.10 4.2.7.2.686 [id number] 044 [id number] [facility] 2023-11-10 00:00:00 2023-12-12 18:06:41 Patient Secure Msg Doctor Unassigned, [place] [facility] 1.114 350.1.13.10 4.2.7.2.686 [id number] [facility] 2023-11-02 00:00:00 2023-12-05 18:07:45 Patient Secure Msg Doctor Unassigned, [place] [facility] 1.114 350.1.13.10 4.2.7.2.686 [id number] [facility] 2023-11-23 00:00:00 2023-11-23 00:00:00 Outpatient R LEVIJORGEIE [facility] [id number] [facility] 2023-11-05 10:00:00 2023-11-05 10:00:00 Outpatient R JOEL SMITH STRAHIL [facility] [id number] [facility] 2023-11-02 00:00:00 2023-11-02 00:00:00 Outpatient R WANG SIMS [facility] [id number] [facility] 2023-10-27 09:00:00 2023-10-27 09:15:00 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 Visit Lab, Neel Sims [facility] 1.840.114 350.1.13.10 4.2.7.2.686 [id number] [facility] 2023-10-27 09:00:00 2023-10-27 08:51:58 Outpatient WANG NORRIS [facility] [id number] [facility] 2023-10-27 00:00:00 2023-10-27 00:00:00 Telephone Wang Sims [facility] 1.840.114 350.1.13.10 4.2.7.2.686 [id number] [facility] 2023-10-27 00:00:00 2023-10-27 00:00:00 Patient Secure Msg Doctor Unassigned, [place] [facility] 1..840.114 350.1.13.10 4.2.7.2.686 [id number] [facility] 2023-10-26 11:00:00 2023-10-26 11:00:00 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 Visit Lab, Ang - Db Wang Sims [facility]?ZA[facility] OFFICE [facility]ILD[facility] 1.2.840.114 350.1.13.10 4.2.7.2.686 [id number] [facility] 2023-10-26 10:30:00 2023-10-26 11:00:00 Office Visit Wang Sims [facility] 1.2.840.114 350.1.13.10 4.2.7.2.686 [id number] 044 [id number] [facility] 2023-10-26 11:00:00 2023-10-26 10:51:30 Outpatient R LEVIJORGEIE [facility] [id number] [facility] 2023-10-19 13:30:00 2023-10-19 13:30:00 Outpatient R WANG SIMS [facility] [id number] [facility] 2023-10-06 00:00:00 2023-10-06 00:00:00 Refill Wang Sims [facility]?ZA[facility] OFF[facility] BUILD[facility] 1.2.840.114 350.1.13.10 4.2.7.2.686 [id number] 044 [id number] [facility] 2023-10-06 00:00:00 2023-10-06 00:00:00 Refill Wang Sims [facility] 1.2.840.114 350.1.13.10 4.2.7.2.686 [id number] 044 [id number] [facility] 2023-09-23 11:00:00 2023-09-23 11:00:00 Outpatient R LEVI WANG [facility] [id number] [facility] 2023-09-23 00:00:00 2023-09-23 00:00:00 Patient Secure Msg Doctor Unassigned, [place] [facility] 1..840.114 350.1.13.10 4.2.7.2.686 [id number] 044 [id number] [facility] 2023-07-21 09:00:00 2023-07-21 09:00:00 Outpatient R WANG SIMS [facility] [id number] [facility] 2023-07-16 00:00:00 2023-07-16 00:00:00 Refill Wang Sims [facility] 1..840.114 350.1.13.10 4.2.7.2.686 [id number] [id number] [facility] 2023-07-07 00:00:00 2023-07-07 00:00:00 Pre Visit Outreach Neyda Sands [facility] 1..840.114 350.1.13.10 4.2.7.2.686 [id number] [facility] 2023-05-18 10:30:00 2023-05-18 10:30:00 Outpatient R KRISTOFER VALDES [facility] [id number] [facility] 2023-05-14 00:00:00 2023-05-14 00:00:00 Outpatient R KRISTOFER VALDES [facility] [id number] [facility] 2023-04-28 00:00:00 2023-04-28 00:00:00 Outpatient R KRISTOFER VALDES [facility] [id number] [facility] 2023-04-17 10:20:00 2023-04-17 13:48:47 Office Visit Ulises Walters [facility] 1..840.114 350.1.13.10 4.2.7.2.686 [id number] [facility] 2023-04-17 10:20:00 2023-04-17 13:48:47 Outpatient R ULISES W[facility] [id number] [facility] 2023-04-14 09:30:00 2023-04-14 09:56:45 Outpatient R LEVI WANG [facility] [id number] [facility] 2023-04-14 09:30:00 2023-04-14 09:56:45 Office Visit Levi [facility] 1.2.840.114 350.1.13.10 4.2.7.2.686 [id number] [facility] 2023-04-14 09:30:00 2023-04-14 09:30:00 Outpatient R WANG SIMS [facility] [id number] [facility] 2023-04-02 13:00:00 2023-04-02 13:22:48 Outpatient R KRISTOFER VALDES [facility] [id number] [facility] 2023-04-02 13:00:00 2023-04-02 13:22:48 Office Visit Kristofer Valdes [facility] 1.2.840.114 350.1.13.10 4.2.7.2.686 [id number] [facility] 2023-03-18 00:00:00 2023-03-18 00:00:00 Telephone Levi Wang [facility] 1.2.840.114 350.1.13.10 4.2.7.2.686 [id number] [facility] 2023-03-17 14:18:55 2023-03-17 23:59:00 Outpatient R WANG SIMS [facility] [id number] [facility] 2023-03-17 14:18:55 2023-03-17 23:59:00 Outpatient R WANG SIMS [facility] [id number] [facility] 2023-03-17 14:18:55 2023-03-17 23:59:00 Hospital Encounter Wang Sims [facility] 1.840.114 350.1.13.10 4.2.7.2.686 [id number] [facility] 2023-03-11 09:30:00 2023-03-11 09:37:55 Outpatient R WANG SIMS [facility] [id number] [facility] 2023-03-11 09:30:00 2023-03-11 09:37:55 Office Visit TonyaWang kendrick [facility] 1.840.114 350.1.13.10 4.2.7.2.686 [id number] 044 [id number] [facility] 2023-03-09 00:00:00 2023-03-09 00:00:00 Refill Michael Javier [facility] 1.840.114 350.1.13.10 4.2.7.2.686 [id number] 044 [id number] [facility] 2023-02-17 00:00:00 2023-02-17 00:00:00 Patient Secure Msg Doctor Unassigned, [place] [facility] 1.84.114 350.1.13.10 4.2.7.2.686 [id number] [facility] 2023-02-17 00:00:00 2023-02-17 00:00:00 Patient Secure Msg TonyaWang kendrick [facility]?ZA[facility] 1.840.114 350.1.13.10 4.2.7.2.686 [id number] 044 [id number] [facility] 2023-02-12 00:00:00 2023-02-12 00:00:00 Patient Secure Msg Wang Sims [facility] 1.2.840.114 350.1.13.10 4.2.7.2.686 [id number] 044 [id number] [facility] 2023-02-11 00:00:00 2023-02-11 00:00:00 Telephone Wang Sims [facility] 1.2.840.114 350.1.13.10 4.2.7.2.686 [id number] 044 [id number] [facility] 2023-02-11 00:00:00 2023-02-11 00:00:00 Telephone Wang Sims [facility] 1.2.840.114 350.1.13.10 4.2.7.2.686 [id number] 044 [id number] [facility] 2023-02-10 11:42:36 2023-02-10 23:59:00 Hospital Encounter Wang Sims [facility] 1.2.840.114 350.1.13.10 4.2.7.2.686 [id number] [facility] 2023-02-10 12:45:00 2023-02-10 13:00:00 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 Visit Lab, Ang - Db Wang Sims [facility] 1.2.840.114 350.1.13.10 4.2.7.2.686 [id number] [facility] 2023-02-10 11:00:00 2023-02-10 11:40:58 Office Visit Wang Sims [facility] 1.2.840.114 350.1.13.10 4.2.7.2.686 [id number] [id number] [facility] 2023-02-10 11:00:00 2023-02-10 11:40:58 Outpatient R WANG SIMS [facility] [id number] [facility] 2023-02-09 00:00:00 2023-02-09 00:00:00 Telephone Wang Sims [facility] 1..840.114 350.1.13.10 4.2.7.2.686 [id number] [id number] [facility] 2023-01-28 12:00:00 2023-01-28 12:03:25 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 Visit Lab, Ang - Db Wang Sims [facility] 1..840.114 350.1.13.10 4.2.7.2.686 [id number] [facility] 2023-01-28 11:00:00 2023-01-28 11:45:12 Outpatient R WANG SIMS [facility] [id number] [facility] 2023-01-28 11:00:00 2023-01-28 11:45:12 Office Visit Wang Sims [facility] 1.2.840.114 350.1.13.10 4.2.7.2.686 [id number] 044 [id number] [facility] 2023-01-28 10:40:00 2023-01-28 10:40:00 Outpatient R UNKNOWN, ATTENDING [facility] [id number] [facility] 2022-06-01 09:40:00 2022-06-01 09:51:18 Urgent Care Ingrid Jenkins, Attending [facility] 1.2.840.114 350.1.13.10 4.2.7.2.686 [id number] [facility] 2022-06-01 09:40:00 2022-06-01 09:51:18 Outpatient R INGRID JENKINS [facility] [id number] [facility] 2022-06-01 00:00:00 2022-06-01 00:00:00 Orders Only Doctor Unassigned, [place] [facility] 1.2.840.114 350.1.13.10 4.2.7.2.686 [id number] [facility] Results Test Description Test Time Test Comments Results Result Co mments Source [facility] with [id number] 16:46:30* Test Item Value Reference Range Interpretation Comme nts WBC (test code = 6690-2) 9.93 4.30-11.10 RBC (test code = 789-8) 4.33 3.93-5.25 HGB (test code = 718-7) 15.2 g/dL 11.6-15.0 H HCT (test code = 4544-3) 42.4 % 35.7-45.2 MCV (test code = 787-2) 97.9 fL 80.6-95.5 H MCH (test code = 785-6) 35.1 pg 25.9-32.8 H MCHC (test code = 786-4) 35.8 g/dL 31.6-35.1 H RDW-SD (test code = 56507-7) 45.3 fL 39.0-49.9 RDW-CV (test code = 788-0) 12.7 % 12.0-15.5 PLT (test code = 777-3) 282 166-358 MPV (test code = 85622-7) 9.4 fL 9.5-12.9 L NRBC/100 WBC (test code = 5169852314) 0.0 0.0-10.0 NRBC x10^3 (test code = 5068582272) See_Comment [Automated messa ge] The system which generated this result transmitted reference range: 10*3/?L. The reference range was not used to interpret this result as normal/abnormal. GRAN MAT (NEUT) % (test code = 770-8) 56.9 % IMM GRAN % (test code = 5353366942) 0.50 % LYMPH % (test code = 736-9) 29.6 % MONO % (test code = 5905-5) 7.3 % EOS % (test code = 713-8) 4.7 % BASO % (test code = 706-2) 1.0 % GRAN MAT x10^3(ANC) (test code = 4522802436) 5.65 10*3/uL 1.88-7.09 IMM GRAN x10^3 (test code = 9800247210) 0.05 10*3/uL 0.00-0.06 LYMPH x10^3 (test code = 731-0) 2.94 10*3/uL 1.32-3.29 MONO x10^3 (test code = 742-7) 0.72 10*3/uL 0.33-0.92 EOS x10^3 (test code = 711-2) 0.47 10*3/uL 0.03-0.39 H BASO x10^3 (test code = 704-7) 0.10 10*3/uL 0.01-0.07 H Lab Interpretation (test code = 59474-3) Abnormal [facility] URINALYSIS W SPECIFIC [id number] 16:50:00* Test Item Value Reference Range Interpretation Comme nts POCT U SP GRAV (test code = 3255) 1.005 mg/dl 1.005-1.025 POCT PH U (test code = 3254) 8 mg/dl 5-8 POCT U LEUK EST (test code = 3263) 1+ Negative - Negative POCT U NIT (test code = 3262) NEG Negative - Negati ve POCT U PROT (test code = 3259) 30 Negative - Negative POCT U GLU (test code = 3256) NORM Negative - Negati ve POCT U KETONE (test code = 3258) NEG Negative - Negative POCT U UROBILI (test code = 3260) NEG 0.2-1 POCT U BILI (test code = 3261) NEG Negative - Negative POCT U BLD (test code = 3257) TRACE Negative - Negati ve POCT U COLOR (test code = 3266) DARK YELLOW POCT U APPEAR (test code = 3267) HAZY [facility] URINALYSIS W SPECIFIC [id number] 16:50:00* Test Item Value Reference Range Interpretation Comme nts POCT U SP GRAV (test code = 3255) 1.005 mg/dl 1.005-1.025 POCT PH U (test code = 3254) 8 mg/dl 5-8 POCT U LEUK EST (test code = 3263) 1+ Negative - Negative POCT U NIT (test code = 3262) NEG Negative - Negati ve POCT U PROT (test code = 3259) 30 Negative - Negative POCT U GLU (test code = 3256) NORM Negative - Negati ve POCT U KETONE (test code = 3258) NEG Negative - Negative POCT U UROBILI (test code = 3260) NEG 0.2-1 POCT U BILI (test code = 3261) NEG Negative - Negative POCT U BLD (test code = 3257) TRACE Negative - Negati ve POCT U COLOR (test code = 3266) DARK YELLOW POCT U APPEAR (test code = 3267) [id number] 16:49:00* Test Item Value Reference Range Interpretation Comme nts POCT PREG (test code = 1605) Negative On board controls acceptable with C Line (test code = 3574) Yes POCT PREG LOT # (test code = 3575) POCT PREG TEST DATE ( test code = 3576) [id number] 16:49:00* Test Item Value Reference Range Interpretation Comme nts POCT PREG (test code = 1605) Negative On board controls acceptable with C Line (test code = 3574) Yes POCT PREG LOT # (test code = 3575) POCT PREG TEST DATE ( test code = 3576) [facility] Notes Date/Time Note Provider Source 2024-12-26 14:06:57 Requested Prescriptions Pending Prescriptions Disp Refills LOSARTAN 100 mg tablet [Pharmacy Med Name: LOSARTAN POTASSIUM 100 MG TAB] 90 tablet 1 Sig: TAKE 1 TABLET BY MOUTH EVERY DAY IN THE MORNING Cardiovascular: Angiotensin Receptor Blockers Passed - 12/26/2024 2:07 PM Passed - Valid encounter within last 12 months Recent Visits Date Type Provider Dept 04/20/24 Office Visit Kristofer Valdes MD [facility] 03/08/24 Office Visit Kristofer Valdes MD [facility] Cardiology Faculty Showing recent visits within past 365 days and meeting all other requirements Future Appointments No visits were found meeting these conditions. Showing future appointments within next 365 days and meeting all other requirements Passed - K in normal range and within 360 days K Date Value Ref Range Status 02/24/2024 4.2 3.5 - 5.0 mmol/L Final Passed - Cr in normal range and within 360 days CREATININE Date Value Ref Range Status 02/24/2024 0.68 0.50 - 1.04 mg/dL Final Albania Hartman MA [facility] 2024-05-17 09:46:15 Images from the original note were not included. Requested Prescriptions Pending Prescriptions Disp Refills AMLODIPINE 10 mg tablet [Pharmacy Med Name: AMLODIPINE BESYLATE 10 MG TAB] 90 tablet Sig: TAKE 1 TABLET BY MOUTH EVERY MORNING FOR 90 DAYS. MUST BE SEEN FOR FURTHER REFILLS Patient compliant per [facility] Cardiology Refill Guidelines. Rx sent to: [facility]/pharmacy #[address] [place] [address] - [facility] [address] AT [facility] [address] [place] Name from pharmacy: AMLODIPINE BESYLATE 10 MG TAB Will file in chart as: AMLODIPINE 10 mg tablet Sig: Take 1 tablet by mouth every morning for 90 days. MUST BE SEEN FOR FURTHER REFILLS Disp: 90 tablet Refills: Not specified Start: 05/17/2024 Class: eRX For: Essential hypertension, Dyslipidemia, Abnormal ECG, Cigarette nicotine dependence without complication, Weak pulse, VALLECILLO (dyspnea on exertion) Last ordered: 2 months ago (03/08/2024) by Kristofer Valdes MD Last refill: 03/08/2024 Rx #: [id number] Calcium Channel Blockers Klujcp5305/17/2024 09:06 AM Protocol Details Valid encounter within last 12 months To be filled at: [facility]/pharmacy #[address] [place] [address] - [address] AT [facility] [address] [place] Elisabet Thomas MA [facility] 2024-05-16 13:55:32 Images from the original note were not included. Notes: 03/14/24 Last Refilled: [facility]/pharmacy #[id number] [place], [place] - [facility] [address] AT [facility] [address] [place] Recent Visits Date Type Provider Dept 10/26/23 Office Visit Wang Sims, PROFESSIONAL DEVELOPMENT INSTRUCTOR [facility] 04/14/23 Office Visit Wang Sims, PROFESSIONAL DEVELOPMENT INSTRUCTOR [facility] 03/11/23 Office Visit Wang Sims, PROFESSIONAL DEVELOPMENT INSTRUCTOR [facility] 02/10/23 Office Visit Wang Sims, PROFESSIONAL DEVELOPMENT INSTRUCTOR [facility] 01/28/23 Office Visit Wang Sims, PROFESSIONAL DEVELOPMENT INSTRUCTOR [facility] Showing recent visits within past 540 days with a meds authorizing provider and meeting all other requirements Future Appointments No visits were found meeting these conditions. Showing future appointments within next 150 days with a meds authorizing provider and meeting all other requirements busPIRone 10 mg tablet Sig: N/A Disp: 180 tablet Refills: 2 Start: 05/15/2024 Class: eRX For: Anxiety and depression, Hot flashes Last ordered: 2 months ago (03/14/2024) by WHITLEY Coronado Provider Review Required Ghmjzs0005/15/2024 01:05 PM Protocol Details This refill cannot be delegated Valid encounter within last 12 months To be filled at: [facility]/pharmacy #[id number] - [place] [address] AT [facility] [address] [place] Mary Foster MA [facility] 2024-04-29 15:57:06 Images from the original note were not included. equested Renewals PARoxetine (PAXIL) 20 mg tablet Sig: Take 1 tablet by mouth in the morning. Disp: 90 tablet Refills: 1 Start: 04/29/2024 Class: eRX For: Anxiety and depression, Hot flashes Last ordered: 6 months ago (10/26/2023) by WHITLEY [facility]: Antidepressants [id number]/29/2024 03:50 PM Protocol Details Manual Review: Verify no changes in dose in the last 3 months Valid encounter within last 12 months To be filled at: [facility]/pharmacy #[id number] - [place], [place] - [address] Recent Visits Date Type Provider Dept 10/26/23 Office Visit Wang Sims, PROFESSIONAL DEVELOPMENT INSTRUCTOR [facility] 04/14/23 Office Visit Wang Sims, PROFESSIONAL DEVELOPMENT INSTRUCTOR [facility] 03/11/23 Office Visit Wang Sims, PROFESSIONAL DEVELOPMENT INSTRUCTOR [facility] 02/10/23 Office Visit Wang Sims, PROFESSIONAL DEVELOPMENT INSTRUCTOR [facility] 01/28/23 Office Visit Wang Sims, PROFESSIONAL DEVELOPMENT INSTRUCTOR [facility] Showing recent visits within past 540 days with a meds authorizing provider and meeting all other requirements Future Appointments No visits were found meeting these conditions. Showing future appointments within next 150 days with a meds authorizing provider and meeting all other requirements Christy Mendoza LVN [facility] 2024-04-29 15:56:39 Recent Visits Date Type Provider Dept 10/26/23 Office Visit Wang Sims, PROFESSIONAL DEVELOPMENT INSTRUCTOR [facility] 04/14/23 Office Visit Wang Sims, PROFESSIONAL DEVELOPMENT INSTRUCTOR [facility] 03/11/23 Office Visit Wang Sims, PROFESSIONAL DEVELOPMENT INSTRUCTOR [facility] 02/10/23 Office Visit Wang Sims, PROFESSIONAL DEVELOPMENT INSTRUCTOR [facility] 01/28/23 Office Visit Wang Sims, PROFESSIONAL DEVELOPMENT INSTRUCTOR [facility] Showing recent visits within past 540 days with a meds authorizing provider and meeting all other requirements Future Appointments No visits were found meeting these conditions. Showing future appointments within next 150 days with a meds authorizing provider and meeting all other requirements AST(SGOT) (U/L) Date Value 02/24/2024 66 (H) ALTv (U/L) Date Value 02/24/2024 62 (H) Christy Mendoza LVN [facility] 2024-04-15 10:40:50 Images from the original note were not included. Results shared, stated that she was already notified, verbalized understanding Kristofer Valdes MD P Cardiology Nurse Normal resting arterial perfusion of both lower extremities. No evidence of hemodynamically significant arterial disease. Echo with in acceptable limits. Preserved LVEF. No significant valve diease noted. Normal diastolic function. Alyssa Finnegan RN [facility] 2024-04-15 08:56:53 Images from the original note were not included. Patient notified of results/recommendations, understanding was verbalized via teach back. Kristofer Valdes MD P Cardiology Nurse Normal resting arterial perfusion of both lower extremities. No evidence of hemodynamically significant arterial disease. Echo with in acceptable limits. Preserved LVEF. No significant valve diease noted. Normal diastolic function. Ramses Lema MA [facility] 2024-04-11 12:41:19 Images from the original note were not included. Received refill request for: Requested Prescriptions Pending Prescriptions Disp Refills losartan 100 mg tablet 30 tablet 3 Sig: Take 1 tablet by mouth every morning. PO: 03/08/24 (Valdes) NOV : 04/20/24 (Valdes) EK03/08/24 Labs: 02/24/24 (CMP, CBC) Refill approved in compliance with cardiology guidelines. Pharmacy: [facility]/pharmacy #[id number] - [place], [place] - [facility] [address] AT [facility] [address] [place] [address] Alicia Betancourt [facility] 2024-04-11 12:30:14 Patient is out of Losartan and is needing a refill sent to [facility] pharmacy in [place]. [facility] 2024-03-14 09:58:53 Images from the original note were not included. Changes Requested Name from pharmacy: BUSPIRONE HCL 10 MG TABLET Will file in chart as: BUSPIRONE 10 mg tablet Sig: TAKE 1 TABLET BY MOUTH 2 TIMES DAILY NEEDED (ANXIETY). Disp: 180 tablet Refills: 2 Start: 03/12/2024 Class: eRX For: Anxiety and depression, Hot flashes Last ordered: 11 months ago (04/14/2023) by WHITLEY Coronado Last refill: 02/19/2024 Rx #: [id number] Pharmacy comment: REQUEST FOR 90 DAYS PRESCRIPTION. DX Code Needed. Provider Review Required Ayqsvp3403/12/2024 08:31 AM Protocol Details This refill cannot be delegated Valid encounter within last 12 months This request has changes from the previous prescription. To be filled at: [facility]/pharmacy #[id number] - [place], [place] - [address] AT [facility] [address] Recent Visits Date Type Provider Dept 10/26/23 Office Visit Wang Sims FNP [facility] 04/14/23 Office Visit Wang Sims FNP [facility] 03/11/23 Office Visit Wang Sims FNP [facility] 02/10/23 Office Visit Wang Sims FNP [facility] 01/28/23 Office Visit Wang Sims FNP [facility] Showing recent visits within past 540 days with a meds authorizing provider and meeting all other requirements Future Appointments No visits were found meeting these conditions. Showing future appointments within next 150 days with a meds authorizing provider and meeting all other requirements Christy Mendoza LVN [facility] 2024-02-24 13:55:54 Pt discharged with diagnosis of , encouraged hydration. Printed and verbal instructions reviewed with and given to pt. Pt. verbalized understanding of teaching and recommended follow-up. Denies questions or concerns at this time. Pt ambulatory at discharge. Appears in no apparent distress. Pt accompanied by . Advised to seek medical attention for new/prolonged/worsening of symptoms, Symptoms improved. No adverse reaction to meds given in ER noted upon discharge PIV d'cd, dressing to site, catheter in tact. Maria Guadalupe Adam RN [facility] 2024-02-24 12:55:18 Report to maria guadalupe. T [facility] 2024-02-24 12:55:00 Report received from JULIAN Anderson T [facility] 2024-02-24 11:16:27 DP pulses heard by doppler bilateral feet and marked. [facility] 2024-02-24 09:57:40 Pt from urgent care. Has been working outside a lot and has felt bilateral foot pain-primarily pads and heels ~week. Pain has progressively worsened and hurts worse when weight applied. Thinks her toes appear discolored. Referred from for ultrasound. DAT Elzbieta Anderson RN [facility] 2024-02-19 07:39:57 Images from the original note were not included. Notes: MUST BE SEEN FOR FURTHER REFILLS Last Refilled: Name from pharmacy: ALBUTEROL HFA (PROAIR) INHALER Will file in chart as: ALBUTEROL 90 mcg/actuation inhaler Sig: TAKE 2 PUFFS BY MOUTH EVERY 6 HOURS NEEDED FOR WHEEZE OR FOR SHORTNESS OF BREATH Disp: 8.5 Each Refills: Not specified Start: 02/19/2024 Class: eRX For: Smoker, Wheezing Last ordered: 3 months ago (10/26/2023) by WHITLEY Coronado Last refill: 10/26/2023 Rx #: [id number] Pulmonology & Allergy: Beta Agonists and Anti-muscarinics Fojoag3802/19/2024 05:18 AM Protocol Details Manual Review: If patient not on inhaled steroid and using bronchodilator more than twice weekly for more than 4 weeks or is having a night cough patient should be seen immediately. Manual Review: Staff refilling for allergy - 1 month supply only unless insurance requires a 3 month supply, then 3 month supply approved. Valid encounter within last 12 months Name from pharmacy: AMLODIPINE BESYLATE 5 MG TAB Will file in chart as: AMLODIPINE 5 mg tablet Sig: TAKE 1 TABLET BY MOUTH EVERY DAY IN THE MORNING Disp: 90 tablet Refills: 0 (Pharmacy requested: Not specified) Start: 02/19/2024 Class: eRX For: Essential hypertension Last ordered: 3 months ago (10/26/2023) by WHITLEY Coronado Last refill: 10/26/2023 Rx #: [id number] Calcium Channel Blockers Zzkqoh5902/19/2024 05:18 AM Protocol Details Valid encounter within last 12 months To be filled at: [facility]/pharmacy #[id number] - [place], [place] - [address] AT [facility] [address] Recent Visits Date Type Provider Dept 10/26/23 Office Visit Wang Sims FNP [facility] 04/14/23 Office Visit Wang Sims FNP [facility] 03/11/23 Office Visit Wang Sims FNP [facility] 02/10/23 Office Visit Wang Sims FNP [facility] 01/28/23 Office Visit Wang Sims FNP [facility] Showing recent visits within past 540 days with a meds authorizing provider and meeting all other requirements Future Appointments No visits were found meeting these conditions. Showing future appointments within next 150 days with a meds authorizing provider and meeting all other requirements Nevaeh Hart MA [facility] 2023-10-27 11:26:00 Encounter and questions in result notes T [facility] 2023-10-27 09:04:19 Liver enzymes are elevated , avoid and alcohol use and limit Nsaids usage. Diet and exercise. Will repeat LFT in 6 weeks. T [facility] 2023-10-27 09:00:00 Patient presented with specimen for drop-off and was identified by and name. Collection information/ total volume were documented accordingly. The following specimens were sent to [facility] laboratories per lab order on 10/27/2023 : 24 hour urine Random urine Stool 2 Swab Other [facility] 2023-10-26 11:00:00 Images from the original note were not included. Venipuncture collection performed by clean technique on the right anticubitus. Total of 1 attempts were made. Slight pressure and a bandage/dressing were applied to the site(s). The patient experienced no complications. The following specimens were processed according to instructions and sent to [facility] laboratories per lab order on 10/26/2023 : LT BLUE SST 1 RED LAV 1 PPT DK GREEN (LiHep) DK GREEN (SodH) BREEN DK BLUE (K2) DK BLUE (S) ACD Blood Culture NIPT/NTD Given sterile stool containers with collection and drop-off instructions. T [facility] 2023-10-06 08:05:24 Images from the original note were not included. losartan 100 mg tablet Sig: Take 1 tablet by mouth every morning. Disp: 90 tablet Refills: 0 Start: 10/06/2023 Class: eRX For: Essential hypertension Last ordered: 2 months ago (07/16/2023) by WHITLEY Coronado Cardiovascular: Angiotensin Receptor Blockers Kvyvod0110/06/2023 04:45 AM Protocol Details Valid encounter within last 12 months K in normal range and within 360 days Cr in normal range and within 360 days To be filled at: [facility]/pharmacy #[id number] - [place], [place] - [address] [facility] [address] AT [facility] 30 day supply sent Recent Visits Date Type Provider Dept 04/14/23 Office Visit Wang Sims FNP [facility] 03/11/23 Office Visit Wang Sims FNP [facility] 02/10/23 Office Visit Wang Sims FNP [facility] 01/28/23 Office Visit Wang Sims FNP [facility] Showing recent visits within past 540 days with a meds authorizing provider and meeting all other requirements Future Appointments No visits were found meeting these conditions. Showing future appointments within next 150 days with a meds authorizing provider and meeting all other requirements Genevieve Beaulieu MA [facility] 2023-03-18 09:08:32 Formatting of this n ote might be different from the original. Neurology referral placed for abnormal Ct of head T [facility] 2023-03-09 09:00:29 Formatting of this n ote is different from the original. Images from the original note were not included. Requested Renewals Name from pharmacy: BUSPIRONE HCL 10 MG TABLET Will file in chart as: BUSPIRONE 10 mg tablet Sig: Take 1 tablet by mouth 2 (two) times daily as needed (anxiety) for up to 30 days. Disp: 60 tablet Refills: 0 (Pharmacy requested: Not specified) Start: 03/09/2023 Class: eRX For: Anxiety and depression Last ordered: 3 weeks ago (02/10/2023) by WHITLEY Coronado Last refill: 02/10/2023 Rx #: [id number] Provider Review Required Failed 03/09/2023 12:38 AM Protocol Details This refill cannot be delegated Valid encounter within last 12 months To be filled at: [facility]/pharmacy #[id number] - [place], [place] - [address] AT [facility] [address] Recent Visits Date Type Provider Dept 02/10/23 Office Visit Wang Sims FNP [facility] 01/28/23 Office Visit Wang Sims FNP [facility] Showing recent visits within past 540 days with a meds authorizing provider and meeting all other requirements Future Appointments Date Type Provider Dept 03/11/23 Appointment Wang Sims FNP [facility] Showing future appointments within next 150 days with a meds authorizing provider and meeting all other requirements Christy Mendoza LVN [facility] 2023-02-13 16:35:38 Formatting of this n ote might be different from the original. Has a cardiac appt on 03/23/23 with Valdes. I did let her know if she had any muscle pain more than normal to reach out to us and to drink plenty of fluids as well. Elza Foster MA 02/13/2023 4:52 PM Elza Foster [facility] 2023-02-12 17:28:56 Formatting of this n ote might be different from the original. Please assist with scheduling. Courtney Juarez DELIVERY DRIVER/CUSTOMER SERVICE [facility] 2023-02-11 13:47:20 Formatting of this n ote might be different from the original. Pt is returning call for her lab results. Please advise Rivka Mathias [facility] 2023-02-11 11:05:04 Formatting of this n ote might be different from the original. Starting pt on Crestor 20mg nightly Please discussed SE of muscle pain that can occur with medication. If occurs please let us know. [facility] 2023-02-10 12:45:00 Formatting of this n ote is different from the original. Images from the original note were not included. Per pt she is here to do all labs for Wang Sims FNP. She already has completed urine culture in office at Wang Sims FNP office. Vahid Gardner 02/10/2023 12:09 PM Venipuncture collection performed by clean technique on the left anticubitus. Total of 1 attempts were made. Slight pressure and a bandage/dressing were applied to the site(s). The patient experienced no complications. The following specimens were processed according to instructions and sent to [facility] laboratories per lab order on 02/10/2023 : LT BLUE SST 2 RED LAV PPT DK GREEN (LiHep) DK GREEN (SodH) BREEN DK BLUE (K2) DK BLUE (S) ACD Blood Culture NIPT/NTD [facility] 2023-02-09 10:38:20 Formatting of this n ote is different from the original. Images from the original note were not included. Released Not seen Liver enzymes are elevated , avoid and alcohol use and limit Nsaids usage. Diet and exercise. Will repeat LFT in 6 weeks. Thyroid normal Hormone panel stable Pt has follow up on 02/10 will discuss s/s then Written by WHITLEY Coronado on 02/09/2023 9:03 AM CDT Courtney Juarez LVN [facility] 2023-02-09 09:04:02 Formatting of this n ote might be different from the original. Lfts were elevated hepatitis panel added [facility]
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
[2025-03-11] MEDS ORDERED: CEFTRIAXONE 1000 MG/VIAL ONE (05:55)
[2025-03-11] MEDS ORDERED: MORPHINE 2 MG/ML SYR ONE (05:55)
[2025-03-11] MEDS ORDERED: ONDANSETRON 4 MG/2 ML VIAL ONE (05:56)
[2025-03-11] MEDS ORDERED: NA CHLORIDE 0.9% 1,000 ML ONE (05:56)
[2025-03-11] MEDS ORDERED: CLINDAMYCIN 900MG/D5W 900 MG/50 ML IVPB IV ONE (05:56)
[2025-03-11 06:24] LABS: PT Prothrombin Time 12.6 SECONDS (10-13.0); Protime INR 1.12
[2025-03-11 06:36] LABS: Absolute Lymphocytes (CBC) 2.3 K/uL (0.7-4.9); Hematocrit 40.2 % (36.0-45.0); Hemoglobin 14.4 g/dL (12.0-15.0); MCH 35.1 pg (27.0-35.0); MCHC 35.7 g/dL (32.0-36.0); MCV 98.1 fL (80-100); MPV 7.6 fL (7.6-11.3); Nucleated RBC Absolute Count 0.0 (0-0); Nucleated Red Blood Cells % 0.0 % (0-0); RBC Red Blood Cell Count 4.10 M/uL (3.86-4.86); White Blood Count 9.50 thou/uL (4.3-10.9)
--- NOTE | 2025-03-11 06:52 | RAD REPORT ---
EXAMINATION: Facial Bones W/ Mpr CLINICAL INDICATION: Female, 54 years old. Swelling;Pain TECHNIQUE: Axial images were obtained through the facial bones and orbits without intravenous contras t. Sagittal and coronal reconstructions were created from the data. One or more of the following dose reduction techniques were used: Automated exposure control, adjustment of the mA and/or kV accor ding to patient size, and/or iterative reconstruction. Unless otherwise specified, incidental findings do not require dedicated imaging follow-up. [id number]. COMPARISON: No prior exams FINDINGS: SOFT TISSUE: Right-sided facial swelling, subcutaneous edema, and skin thickening. Possible fluid tra ct or phlegmon at the right cheek. BONES: Fixation hardware along the right aspect of mandible. Periapical lucency associated with the r ight mandibular second premolar and first molar. This abuts the fixation hardware. Possible fluid tract extending from this portion of the mandible up to the skin surface. This measures approximately 17 x 10 mm. ORBITS: The globes are intact. No intraorbital hemorrhage or mass. SINUSES: The paranasal sinuses and tympanomastoid cavities are predominantly clear. BRAIN: No acute abnormalities in the visualized intracranial structures. IMPRESSION: Infection suspected associated with the right second mandibular premolar and molar which abuts the ma ndible reconstruction plate with right facial cellulitis. Possible abscess or phlegmonous tract along the right cheek which extends from the reconstruction plate up to the skin surface of the right cheek.
[2025-03-11 07:14] LABS: ALT/SGPT 45.0 U/L (13-56); AST/SGOT 31.0 U/L (15-37); Albumin 3.2 g/dL (3.4-5.0); Albumin/Globulin Ratio 0.9 (1.1-1.8); Alkaline Phosphatase 136.0 U/L (45-117); Anion Gap 6.7 mEq/L (5.0-15.0); BUN Blood Urea Nitrogen 7.0 mg/dL (7-18); Globulin 3.4 g/dL (2.3-3.5); Glucose Level 103.0 mg/dL (74-106); Potassium 3.7 mEq/L (3.5-5.1)
[2025-03-11 07:46] VITALS: BP 134/78; TEMP 97.9; O2SAT 99
== END 2025-03-11 07:36 | disposition short-term general hospital (02) ==
LOC: ER 05:21
DX: K02.9 Dental caries, unspecified (principal); K02.7 Dental root caries; Z98.818 Other dental procedure status; Z72.0 Tobacco use; Z71.6 Tobacco abuse counseling
CPT/HCPCS: 96365; 96361; 85025; 36415; 85610; 80053; 70486; 76377; 96375; 99285; J2270; J2405; J7030; J0696